=== PATIENT | female | born 1975 | race Caucasian/White ===

== ENCOUNTER 2019-01-22 23:03 | Observation (INO) | payer OTHER ==
[~2019-01-22] VITALS: Ht 162.6 cm; Wt 58.1 kg
[~2019-01-22 23:03] MED LIST: Z.0.SYNTHROID50 MCG PO
--- OUTSIDE RECORDS SUMMARY | 2019-01-22 23:45 | XMS REPORT | Continuity of Care Document ---
Author Author [facility] Address Unknown Phone Unavailable Problems Problem Status Onset Date Classification Date Reported Comments Source Chest pain, unspecified type Active Diagnosis 09/29/2016 [facility] Other specified hypothyroidism Active Diagnosis 09/29/2016 [facility] Medications Medication Details Route Status Patient Instructions Ordering Provider Order Date Source Synthroid 1 tablet orally Active .05 orally daily Audrey [facility] Allergies, Adverse Reactions, Alerts Substance Category Reaction Severity Reaction type Status Date Reported Comments Source Codeine Adverse Reaction Info Not Available Adverse Reaction Active 09/23/2016 [facility] Immunizations Immunization Date Given Site Status Last Updated Comments Source Results Order Name Results Value Reference Range Date Interpretation Comments Source Vital Signs Vital Sign Value Date Comments Source Systolic (mm Hg) 116 09/23/2016 [facility] Weight 110 09/23/2016 [facility] Heart Rate 58 09/23/2016 [facility] Diastolic (mm Hg) 76 09/23/2016 [facility] Encounters Location Location Details Encounter Type Encounter Number Reason For Visit Attending Provider ADM Date DC Date Status Source [facility] [employer] [facility] SENT TODAY [id number] 09/23/2016 09/23/2016 [facility] Audrey [employer] [facility] SENT TODAY [id number] 09/23/2016 09/23/2016 [facility] Audrey [employer] [facility] SENT TODAY [id number] 09/23/2016 09/23/2016 [facility]rey [facility] [id number] 09/23/2016 09/23/2016 [facility] [id number] 09/23/2016 09/23/2016 [facility]rey [facility] [id number] 09/23/2016 09/23/2016 [facility] Audrey [facility] N[facility] [id number] 09/27/2016 09/27/2016 [facility] Procedures Procedure Code Date Perfomer Comments Source
--- OUTSIDE RECORDS SUMMARY | 2019-01-22 23:45 | XMS REPORT ---
Author Author [facility] Address Unknown Phone Unavailable Care Team Providers Care Marketing Traffic Coordinator Name Role Phone Unavailable Unavailable Problems This patient has no known problems. Allergies, Adverse Reactions, Alerts This patient has no known allergies or adverse reactions. Medications This patient has no known medications. Encounters Start Date/Time End Date/Time Encounter Type Admission Type Attending [facility] Facility Care Department Encounter ID 2019-01-17 12:00:00 2019-01-17 12:00:00 Emergency E [id number]
--- OUTSIDE RECORDS SUMMARY | 2019-01-22 23:45 | XMS REPORT ---
Author Author Kacey Ventura Organization [employer] Address Unknown Phone Unavailable Care Team Providers Care Fleet Service Manager Name Role Phone Kacey Ventura CP Unavailable Allergies, Adverse Reactions, Alerts Substance Reaction Event Type Codeine Info Not Available Drug Allergy Encounters Encounter Location Date [employer] [facility] SENT TODAY Audrey ERVIN [facility] Sep 23, 2016 ECHO Audrey ERV[facility] Sep 23, 2016 Problems Problem Type Condition ICD-9 Code Onset Dates Condition Status Assessment Chest pain, unspecified type R07.9 Active Assessment Other specified hypothyroidism E03.8 Active Problem Other specified hypothyroidism E03.8 Active Medications Medication Code System Code Instructions Start Date End Date Status Dosage Synthroid Unknown 0 .05 orally daily Active 1 tablet Social History Social History Element Qualifiers Date Reported Caffeine: yes. Do you drink caffeine? Yes, How much a day? 1 cup or more, What type? Soda Sep 23, 2016 Smoking: . Are you a: Never smoker Sep 23, 2016 Alcohol: no. Type: , Frequency: ,Years: , Determination: Sep 23, 2016 Vital Signs Date/Time: Sep 23, 2016 Blood Pressure Systolic 116 mm Hg Weight 110 lbs Cardiac Monitoring Heart Rate 58 /min Blood Pressure Diastolic 76 mm Hg Summary Purpose [employer] Submission
--- OUTSIDE RECORDS SUMMARY | 2019-01-22 23:45 | XMS REPORT ---
Author Author aKcey Ventura Organization [employer] Address Unknown Phone Unavailable Care Team Providers Care Cost Controller Name Role Phone Kacey Ventura CP Unavailable Encounters Encounter Location Date [employer] [facility] SENT TODAY Audrey ERVIN PA Sep 23, 2016 ECHO Audrey ERVIN [facility] Sep 23, 2016 Problems Problem Type Condition ICD-9 Code Onset Dates Condition Status Assessment Chest pain, unspecified type R07.9 Active Assessment Other specified hypothyroidism E03.8 Active Problem Other specified hypothyroidism E03.8 Active Social History Social History Element Qualifiers Date Reported Caffeine: yes. Do you drink caffeine? Yes, How much a day? 1 cup or more, What type? Soda Sep 23, 2016 Smoking: . Are you a: Never smoker Sep 23, 2016 Alcohol: no. Type: , Frequency: ,Years: , Determination: Sep 23, 2016 Summary Purpose [employer] Submission
--- OUTSIDE RECORDS SUMMARY | 2019-01-22 23:45 | XMS REPORT ---
Author Author Kacey Ventura Organization [employer] Address Unknown Phone Unavailable Care Team Providers Care Pan Devulcanizer Helper Name Role Phone Kacey Ventura CP Unavailable Encounters Encounter Location Date [facility] SENT TODAY Audrey ERVIN PA Sep 23, 2016 ECHO Audrey ERVIN PA Sep 23, 2016 NST Audrey ERVIN PA Sep 27, 2016 Problems Problem Type Condition ICD-9 Code [...]
[2019-01-23] VITALS (9 sets, daily range): BP systolic 89–117; BP diastolic 50–65
[2019-01-23] MEDS ORDERED: SODIUM CHLORIDE 0.9% 1000ML 1,000 ML IV SCH (00:30)
--- NOTE | 2019-01-23 00:32 | NUR ---
PATIENT RECEIVED FROM [facility] PER AMBULANCE SERVICE AT 2350. SHE'S ALERT AND ORIENTED X4, NO RESPIRATORY DISTRESS OBSERVED. SKIN INTEGRITY INTACT, SHE C/O PAIN TO THE ABDOMEN WITH PAIN SCORE #8. NO PAIN MEDICATION ON ORDER, CALL AND SPOKE WITH DR CHAUDHRY'S SUPERVISOR ACCOUNTING CLERKS REGARDING PAIN MANAGEMENT, NEW ORDERS RECEIVED. WILL ADMINISTER PAIN MEDICATION ONCE THE ORDERS HAS BEEN VERIFIED BY THE PHARMACIST. ORIENTED TO SURROUNDINGS, CALL LIGHT WITHIN EASY REACH.
[2019-01-23] MEDS: SODIUM CHLORIDE 0.9% 1000ML 1,000 ML IV SCH (01:10)
[2019-01-23] MEDS: HYDROMORPHONE 2MG/ML 2 MG/ML ML IV PRN ×2 (01:10→17:18)
--- NOTE | 2019-01-23 04:49 | NUR ---
PATIENT ASSISTED TO THE RESTROOM TO VOID, SHE'S NOW BACK IN BED AND SHE DENIES ABDOMINAL PAIN AT THIS TIME. CALL LIGHT WITHIN EASY REACH, SHE'S INSTRUCTED TO CALL FOR ASSISTANCE NEEDED.
[2019-01-23] MEDS: ONDANSETRON HCL INJ 2MG/ML 2ML 2 MG/ML VIAL IV PRN ×3 (05:43→21:44)
--- NOTE | 2019-01-23 05:47 | NUR ---
PATIENT C/O NAUSEA AND ABDOMINAL PAIN, MEDICATED WITH ZOFRAN ORDERED, SHE WAS TOLD THAT IT'S NOT TIME FOR THE PAIN MEDICATION YET.
[2019-01-23 06:30] LABS: BASOPHILS % 0.9 % (0.0-1.0); EOSINOPHILS # (AUTO) 0.1 (0.0-0.4); EOSINOPHILS % 2.5 % (0.0-6.0); HEMATOCRIT 29.8 % (34.2-44.1); HEMOGLOBIN 10.3 g/dL (12.0-16.0); LYMPHOCYTES # (AUTO) 1.8 (1.0-3.2); LYMPHOCYTES % 39.7 % (18.0-39.1); MEAN CORPUSCULAR HEMOGLOBIN 31.6 pg (28-32); MEAN CORPUSCULAR HGB CONC 34.6 g/dL (31-35); MEAN CORPUSCULAR VOLUME 91.4 fL (81-99); MONOCYTES # (AUTO) 0.3 (0.2-0.8); MONOCYTES % 6.9 % (4.4-11.3); NEUTROPHILS # (AUTO) 2.2 (2.1-6.9); NEUTROPHILS % 49.8 % (38.7-80.0); PLATELET COUNT 208 x10e3/uL (140-360); RED BLOOD COUNT 3.26 x10e6/uL (3.6-5.1); RED CELL DISTRIBUTION WIDTH 11.7 % (11.7-14.4)
[2019-01-23 07:10] LABS: ANION GAP 6.8 mmol/L (8-16); BLOOD UREA NITROGEN 17 mg/dL (7-26); BUN/CREATININE RATIO 18 (6-25); CARBON DIOXIDE 23 mmol/L (22-29); CHLORIDE 110 mmol/L (98-107); CREATININE, SERUM 0.96 mg/dL (0.57-1.11); EST GLOMERULAR FILTRATION RATE > 60 ML/MIN (60-); GLUCOSE 84 mg/dL (74-118); POTASSIUM 3.8 mmol/L (3.5-5.1); SODIUM 136 mmol/L (136-145)
--- NOTE | 2019-01-23 10:42 | NUR ---
Patient off the unit for EGD, stable, Dr Valencia had rounds
[2019-01-23] MEDS ORDERED: ACETAMINOPHEN 325 MG TAB PO PRN (11:45)
[2019-01-23] MEDS ORDERED: HYDRALAZINE HCL 20 MG/ML VIAL IV PRN (11:45)
--- NOTE | 2019-01-23 12:05 | NUR ---
patient back from EGD, stable. family at bed side
--- NOTE | 2019-01-23 12:05 | NUR ---
Patei Addendum: 01/23/19 at 1435 by LUCÍA MCADAMS RN wrong entry
[2019-01-23] MEDS ORDERED: MIDAZOLAM HCL 2 MG/2 ML VIAL ONE (13:38)
[2019-01-23] MEDS: OYST-CAL-D 500MG TABLET PO SCH (16:16)
[2019-01-23] MEDS ORDERED: LIDOCAINE HCL 2% LOCAL INJ 5 ML SDV VIAL INJ ONE (17:19)
[2019-01-23] MEDS ORDERED: PROPOFOL IV EMULSION 10 MG/ML 20 ML VIAL ONE (17:19)
--- NOTE | 2019-01-23 18:55 | Consultation ---
DATE OF CONSULTATION: 01/23/2019 HISTORY OF PRESENT ILLNESS: This is a 43-year-old, who has supposedly history of hypothyroidism, presented to the hospital because of problems with abdominal pain mostly in the epigastric area associated with some nausea and vomiting. She denies any bleeding along with this problem. Her workup so far referred as she is somewhat anemic with hemoglobin as low as 10.3. She denies any history of ulcer disease in the past. PAST MEDICAL HISTORY: Significant for history of hypothyroidism. MEDICATIONS: Including levothyroxine. ALLERGIES: NONE. SOCIAL HISTORY: No alcohol use. FAMILY HISTORY: Noncontributory. REVIEW OF SYSTEMS: At this point, she denies any chest pain or shortness of breath. Denies any dysphagia, odynophagia. Denies any dysuria, hematuria, or any kind of syncopal episode. PHYSICAL EXAMINATION: GENERAL: The patient is awake, alert, appears to be stable, not in acute distress at this point. VITAL SIGNS: Afebrile, currently without vital signs. HEAD, EYES, EARS, NOSE, AND THROAT: Normocephalic, atraumatic. Sclerae are anicteric. NECK: Supple. HEART: Regular. ABDOMEN: Soft. There is significant tenderness in the epigastric area. There is no rebound or mass. EXTREMITIES: Demonstrates no clubbing. LABORATORY DATA: She had an abdominal ultrasound that was done yesterday, which was negative and again labs shows hemoglobin of 10.3, hematocrit of 29.8, and BMP is normal. IMPRESSION: 1. Abdominal pain, nausea, and vomiting with ulcer disease. 2. Hypothyroidism. Recommendation is continue current care at this point. Keep n.p.o. We will proceed with EGD for further evaluations and follow labs. Jeromy Valencia MD DHD/MODL /[id number] cc: MD Froylan Nicole MD
--- NOTE | 2019-01-23 19:31 | NUR ---
Received bedside shift report from dayshift RN. Patient is laying on the bed with call light within reach, bed set low and side rails up x2. Patient is not in distress and reported no pain
--- NOTE | 2019-01-23 21:44 | NUR ---
Patient was feeling nauseated vomiting substances into the basin. RN checked on patient after stating the nausea subsided but then again returned. RN administered Zofran IV for nausea. Continue to monitor the patient for nausea/pain
[2019-01-24] VITALS (7 sets, daily range): BP systolic 93–117; BP diastolic 50–55
[2019-01-24] MEDS ORDERED: LEVOTHYROXINE SODIUM 50 MCG TAB PO SCH (06:00)
[2019-01-24 06:02] LABS: BASOPHILS % 0.5 % (0.0-1.0); EOSINOPHILS # (AUTO) 0.1 (0.0-0.4); EOSINOPHILS % 0.8 % (0.0-6.0); HEMATOCRIT 30.8 % (34.2-44.1); LYMPHOCYTES # (AUTO) 1.5 (1.0-3.2); MEAN CORPUSCULAR HEMOGLOBIN 32.2 pg (28-32); MEAN CORPUSCULAR HGB CONC 35.7 g/dL (31-35); MEAN CORPUSCULAR VOLUME 90.1 fL (81-99); MONOCYTES # (AUTO) 0.3 (0.2-0.8); MONOCYTES % 4.2 % (4.4-11.3); NEUTROPHILS # (AUTO) 5.7 (2.1-6.9); NEUTROPHILS % 74.4 % (38.7-80.0); PLATELET COUNT 224 x10e3/uL (140-360); RED BLOOD COUNT 3.42 x10e6/uL (3.6-5.1); RED CELL DISTRIBUTION WIDTH 11.3 % (11.7-14.4)
[2019-01-24 06:33] LABS: ANION GAP 7.6 mmol/L (8-16); BLOOD UREA NITROGEN 11 mg/dL (7-26); BUN/CREATININE RATIO 13 (6-25); CALCIUM 8.2 mg/dL (8.4-10.2); CARBON DIOXIDE 25 mmol/L (22-29); CHLORIDE 106 mmol/L (98-107); CREATININE, SERUM 0.86 mg/dL (0.57-1.11); EST GLOMERULAR FILTRATION RATE > 60 ML/MIN (60-); GLUCOSE 73 mg/dL (74-118); LIPASE 15 U/L (8-78); MAGNESIUM 1.7 MG/DL (1.3-2.1); POTASSIUM 3.6 mmol/L (3.5-5.1); SODIUM 135 mmol/L (136-145)
[2019-01-24 06:34] LABS: B-TYPE NATRIURETIC PEPTIDE2 160.1 pg/mL (0-100)
[2019-01-24 06:56] LABS: FREE T4 (FREE THYROXINE) 0.89 ng/dL (0.9-1.8); THYROID STIMULATING HORMONE 0.258 uIU/mL (0.350-4.940)
[2019-01-24] MEDS: SODIUM CHLORIDE 0.9% 1000ML 1,000 ML IV SCH ×2 (07:07→17:19)
--- NOTE | 2019-01-24 07:08 | NUR ---
pt asleep resp even and unlabored at this time no distress noted at this time, no c/o pain to abdomen area, pt able to make needs known will cont to monitor. call light in reach.
[2019-01-24] MEDS: LEVOTHYROXINE SODIUM 50 MCG TAB PO SCH (07:11)
[2019-01-24] MEDS: PANTOPRAZOLE SOD 40 MG TABEC PO SCH ×2 (07:13→07:30)
[2019-01-24] MEDS: OYST-CAL-D 500MG TABLET PO SCH ×2 (09:00→17:13)
[2019-01-24] MEDS ORDERED: ACETAMINOPHEN/ASPIRIN/CAFFEINE 1 EA TAB PO ONE (11:15)
[2019-01-24] MEDS ORDERED: PANTOPRAZOLE SO40 MG PO (11:18)
--- NOTE | 2019-01-24 11:32 | NUR ---
Denise here to see pt.
[2019-01-24] MEDS ORDERED: ACETAMINOPHEN/ASPIRIN/CAFFEINE 1 EA TAB PO NR (17:30)
[2019-01-24] MEDS ORDERED: PANTOPRAZOLE INJ 40 MG in SODIUM CHLORIDE 0.9% 50ML 50 ML IV SCH (18:15)
[2019-01-24] MEDS: PANTOPRAZOL 40MG/SOD CHL 0.9% 50 ML IV SCH ×2 (18:44→22:50)
--- NOTE | 2019-01-24 19:14 | NUR ---
report given to on coming nurse for continued care.
[2019-01-24] MEDS: SUCRALFATE 1 GM TAB PO SCH (21:17)
[2019-01-24] MEDS: ONDANSETRON HCL INJ 2MG/ML 2ML 2 MG/ML VIAL IV PRN (23:04)
[2019-01-25] VITALS: BP 109/55
--- NOTE | 2019-01-25 02:24 | NUR ---
PATIENT IS ASLEEP RESTING COMFORTABLY BOTH EYES CLOSED. SHOWS NO SIGNS OF DISTRESS OR PAIN. CALL LIGHT WITH EASY REACH WILL CONTINUE TO MONITOR.
[2019-01-25] MEDS: PANTOPRAZOL 40MG/SOD CHL 0.9% 50 ML IV SCH ×2 (03:45→09:51)
[2019-01-25 04:00] VITALS: BP 102/53
[2019-01-25 05:42] LABS: BASOPHILS % 0.6 % (0.0-1.0); EOSINOPHILS # (AUTO) 0.1 (0.0-0.4); EOSINOPHILS % 1.6 % (0.0-6.0); HEMOGLOBIN 10.6 g/dL (12.0-16.0); LYMPHOCYTES # (AUTO) 1.5 (1.0-3.2); LYMPHOCYTES % 31.4 % (18.0-39.1); MEAN CORPUSCULAR HEMOGLOBIN 31.7 pg (28-32); MEAN CORPUSCULAR HGB CONC 35.3 g/dL (31-35); MEAN CORPUSCULAR VOLUME 89.8 fL (81-99); MONOCYTES # (AUTO) 0.3 (0.2-0.8); NEUTROPHILS # (AUTO) 2.9 (2.1-6.9); PLATELET COUNT 221 x10e3/uL (140-360); RED BLOOD COUNT 3.34 x10e6/uL (3.6-5.1); RED CELL DISTRIBUTION WIDTH 11.2 % (11.7-14.4)
[2019-01-25 06:17] LABS: ANION GAP 8.8 mmol/L (8-16); BLOOD UREA NITROGEN 10 mg/dL (7-26); BUN/CREATININE RATIO 12 (6-25); CALCIUM 8.5 mg/dL (8.4-10.2); CARBON DIOXIDE 23 mmol/L (22-29); CHLORIDE 107 mmol/L (98-107); CREATININE, SERUM 0.86 mg/dL (0.57-1.11); EST GLOMERULAR FILTRATION RATE > 60 ML/MIN (60-); GLUCOSE 70 mg/dL (74-118); POTASSIUM 3.8 mmol/L (3.5-5.1); SODIUM 135 mmol/L (136-145)
[2019-01-25] MEDS: LEVOTHYROXINE SODIUM 50 MCG TAB PO SCH (06:40)
[2019-01-25 07:25] VITALS: BP 105/50
--- NOTE | 2019-01-25 07:25 | NUR ---
PATIENT ASSISTED TO THE RESTROOM AND BACK TO BED. IV FLUID AND IV PROTONIC INFUSING ORDERED. DENIED PAIN AT THIS TIME. BED IN LOWER POSITION, CALL LIGHT AT REACH.
[2019-01-25] MEDS: SUCRALFATE 1 GM TAB PO SCH ×3 (07:39→16:36)
[2019-01-25 08:00] VITALS: BP 105/50
[2019-01-25] MEDS: OYST-CAL-D 500MG TABLET PO SCH ×2 (09:16→17:37)
[2019-01-25] MEDS: SODIUM CHLORIDE 0.9% 1000ML 1,000 ML IV SCH (09:51)
[2019-01-25 11:42] VITALS: BP 109/55
--- NOTE | 2019-01-25 12:30 | NUR ---
PATIENT TOLERATED CLEAR LIQUID. MD NOTIFIED, DIET ADVANCED.
[2019-01-25 16:11] VITALS: BP 116/58
--- NOTE | 2019-01-25 16:25 | NUR ---
PATIENT SITTING AT BED SIDE TALKING TO FAMILY MEMBERS VISITING. CALL LIGHT AT REACH.
[2019-01-25] MEDS ORDERED: CARAFATE1 GM/10 ML PO (18:27)
--- NOTE | 2019-01-25 18:45 | NUR ---
PATIENT DISCHARGED HOME. DISCHARGE INSTRUCTIONS, PRESCRIPTIONS, AND FOLLOW UP GIVEN TO PATIENT, SHE VERBALIZED UNDERSTANDING. IV TO LEFT HAND REMOVED WITH TIP INTACT. ALL PERSONAL ITEMS TAKEN WITH PATIENT. REFUSED WHEEL CHAIR, BUT WAS ACCOMPANIED BY HOSPITAL STAFF TO FRONT LOBBY IN STABLE CONDITION.
--- NOTE | 2019-01-30 05:01 | Discharge Summary ---
ADMISSION DIAGNOSES: Abdominal pain, hypothyroidism, and hypocalcemia. DISCHARGE DIAGNOSES: Abdominal pain, hypothyroidism, hypocalcemia, hiatal hernia, acid reflux, gastritis, and hyponatremia. HISTORY: The patient has a history of IBS and hypothyroidism. SURGICAL HISTORY: Right carpal tunnel release, bilateral breast augmentation, partial hysterectomy. FAMILY HISTORY: Noncontributory. SOCIAL HISTORY: The patient admits to occasional alcohol use. HOSPITAL COURSE: A 43-year-old female, says she had abdominal pain for 2 days and went to [facility], but was sent home. When the patient returned 2 days later to the ER, her abdominal pain had returned, so she was admitted. The patient had an EGD that showed hiatal hernia, reflux, and gastritis. The patient was started on Protonix and IV fluids. After the EGD, patient was unable to tolerate p.o. fluids, so her discharge was held until she was able to tolerate food. She was started on a Protonix drip for a day before she was able to tolerate food. Vital signs stable, patient afebrile. The patient was given a prescription for Protonix. She will follow up with primary care in 1-2 weeks. The patient understands discharge instructions and agrees to plan. Dictated by Denise Francisco NP MD SYMONE Basilio/ZAHEER /[id number]
== END 2019-01-25 18:49 | disposition home or self-care (01) ==
LOC: INTOOBSV 23:43 → MED/SURG3 23:43
PROVIDERS: ADMIT Internal Medicine; ATTEND Internal Medicine
DX: K29.00 Acute gastritis without bleeding (principal); E87.1 Hypo-osmolality and hyponatremia; K44.9 Diaphragmatic hernia without obstruction or gangrene; R10.13 Epigastric pain; E03.9 Hypothyroidism, unspecified; K58.9 Irritable bowel syndrome, unspecified; Z88.5 Allergy status to narcotic agent; Z91.011 Allergy to milk products; E83.51 Hypocalcemia
CPT/HCPCS: 36415 ×3; 43239; 80048 ×3; 83036; 83690; 83735; 83880; 84439; 84443; 85025 ×3; 88305; 88312; 96374; 96376; G0378 ×4; J1170; J2001; J2250; J2405 ×2; J2704; J7030 ×3; S0164

== ENCOUNTER → 2019-05-16 | Day surgery (SDC) | payer OTHER ==
[2019-05-15 16:16] LABS: BASOPHILS # (AUTO) 0.1 (0.0-0.1); BASOPHILS % 1.1 % (0.0-1.0); EOSINOPHILS # (AUTO) 0.1 (0.0-0.4); EOSINOPHILS % 1.3 % (0.0-6.0); HEMOGLOBIN 12.3 g/dL (12.0-16.0); LYMPHOCYTES # (AUTO) 1.8 (1.0-3.2); LYMPHOCYTES % 28.9 % (18.0-39.1); MEAN CORPUSCULAR HEMOGLOBIN 31.6 pg (28-32); MEAN CORPUSCULAR HGB CONC 35.1 g/dL (31-35); MONOCYTES # (AUTO) 0.5 (0.2-0.8); MONOCYTES % 8.4 % (4.4-11.3); NEUTROPHILS # (AUTO) 3.7 (2.1-6.9); PLATELET COUNT 291 x10e3/uL (140-360); RED BLOOD COUNT 3.89 x10e6/uL (3.6-5.1); RED CELL DISTRIBUTION WIDTH 11.9 % (11.7-14.4)
[2019-05-15 16:36] LABS: ALBUMIN 4.2 g/dL (3.5-5.0); ALBUMIN/GLOBULIN RATIO 1.4 (0.8-2.0); ANION GAP 13.9 mmol/L (8-16); CALCIUM 9.7 mg/dL (8.4-10.2); CREATININE, SERUM 1.15 mg/dL (0.57-1.11); POTASSIUM 3.9 mmol/L (3.5-5.1)
[~2019-05-16] MED LIST changes: +BIOTIN PO; +BUPIVACAINE 0.25%/EPI 30ML SDV INJ ONE; +CARAFATE1 GM/10 ML PO; +DEXAMETHASONE SOD PHOS INJ 4 MG/ML VIAL ONE; +FENTANYL CITRATE/PF 100MCG/2 ML INJ ONE; +GLYCOPYRROLATE INJ 1MG/ 5 ML SYR ONE; +KETOROLAC TROMETHAMINE 30 MG/ML VIAL ONE; +LIDOCAINE HCL 2% LOCAL INJ 5 ML SDV VIAL INJ ONE; +LINZESS PO; +METOCLOPRAMIDE HCL 10 MG/2ML VIAL ONE; +MIDAZOLAM HCL 2 MG/2 ML VIAL ONE; +NEOSTIGMINE 5 MG/5ML SYR ONE; +ONDANSETRON HCL INJ 2MG/ML 2ML 2 MG/ML VIAL ONE; +PANTOPRAZOLE SO40 MG PO; +PROPOFOL IV EMULSION 10 MG/ML 20 ML VIAL ONE; +ROCURONIUM BROMIDE 10 MG/ML 5ML VIAL ONE; +SEVOFLURANE INHAL SOLN 250 ML PEN BTL ONE
--- OUTSIDE RECORDS SUMMARY | 2019-05-16 07:39 | XMS REPORT | Clinical Summary ---
Author Author [facility] Organization [facility] Address Unknown Phone Unavailable Care Team Providers Care Photonics Engineering Technologist Name Role Phone Parish Harris MD PCP Allergies Comments Active Allergy Reactions Severity Noted Date Codeine Itching 04/18/2019 Medications End Date Status Medication Sig Dispensed Refills Start Date 04/23/2019 traMADol (ULTRAM) 50 mg Take 1 tablet 10 tablet 0 tablet (50 mg total) 9 by mouth every 6 (six) hours as needed for moderate pain for up to 10 doses. 04/27/2019 sucralfate (CARAFATE) 1 Take 1 tablet 30 tablet 0 gram tablet (1 g total) 9 by mouth 4 (four) times a day before meals and nightly for 30 doses. Active Problems Not on file Encounters Care Team Description Date Type Specialty Layo Cifuentes, RETURNED GOODS INSPECTOR-C Armando Perkins MD Epigastric pain (Primary Dx); Non-intractable vomiting with nausea, unspecified vomiting type 04/18/2019 Emergency Emergency Medicine - 2019 Delvin Navarro MD Diaphragmatic hernia without obstruction or gangrene; Epigastric pain; Gastritis without bleeding, unspecified chronicity, unspecified gastritis type 02/22/2019 Hospital Radiology Encounter Delvin Navarro MD Diaphragmatic hernia without obstruction or gangrene (Primary Dx); Epigastric pain; Gastritis without bleeding, unspecified chronicity, unspecified gastritis type 02/18/2019 Transcribe Access Orders after 05/15/2018 Social History Date Tobacco Use Types Packs/Day Years Used Never Assessed Sex Assigned at Date Recorded Not on file Industry Job Start Date Occupation Not on file Not on file Not on file Travel End Travel History Travel Start No recent travel history available. Last Filed Vital Signs Reading Time Taken Comments Vital Sign 102/62 2019 1:26 AM CDT Blood Pressure 60 2019 1:26 AM CDT Pulse 36.7 C (98 F) 04/18/2019 7:14 PM CDT Temperature 18 2019 1:26 AM CDT Respiratory Rate 100% 2019 1:26 AM CDT Oxygen Saturation - - Inhaled Oxygen Concentration 50.8 kg (112 lb) 04/18/2019 7:13 PM CDT Weight 162.6 cm (5' 4") 04/18/2019 7:13 PM CDT Height 19.22 04/18/2019 7:13 PM CDT Body Mass Index Plan of Treatment Health Maintenance Due Date Last Done Comments CERVICAL CANCER SCREENING 1994 INFLUENZA VACCINE 03/28/2019 Procedures Comments Procedure Name Priority Date/Time Associated Diagnosis ECG ED PRELIMINARY Routine 2019 INTERPRETATION 1:27 AM CDT ESTIMATED GFR STAT 04/18/2019 10:55 PM CDT HCG QUALITATIVE, URINE STAT 04/18/2019 SCREEN 10:55 PM CDT URINALYSIS SCREEN AND STAT 04/18/2019 MICROSCOPY, WITH REFLEX 10:55 PM CDT TO CULTURE LIPASE LEVEL STAT 04/18/2019 10:55 PM CDT COMPREHENSIVE METABOLIC STAT 04/18/2019 PANEL 10:55 PM CDT HC COMPLETE BLD COUNT STAT 04/18/2019 W/AUTO DIFF 10:55 PM CDT URINE CULTURE STAT 04/18/2019 10:55 PM CDT US GALLBLADDER STAT 04/18/2019 9:33 PM CDT ECG 12-LEAD STAT 04/18/2019 8:42 PM CDT NM HEPATOBILIARY W PHARM Routine 02/22/2019 Diaphragmatic hernia 11:25 AM CDT without obstruction or gangrene Epigastric pain Gastritis without bleeding, unspecified chronicity, unspecified gastritis type after 05/15/2018 Results * ECG ED Preliminary Interpretation - Not an Order (2019 1:27 AM CDT) Narrative Performed At Layo Cifuentes NP-C 04/20/20193:37 PM ECG ED Preliminary Interpretation - Not an Order Performed by: Layo Cifuentes NP-C Authorized by: Layo Cifuentes NP-C ECG reviewed by ED Physician in the absence of a veneer stapler: yes Previous ECG: Previous ECG:Unavailable Interpretation: Interpretation: non-specific Rate: ECG rate:48 ECG rate assessment: bradycardic Rhythm: Rhythm: sinus bradycardia Ectopy: Ectopy: none QRS: QRS axis:Normal QRS intervals:Normal ST segments: ST segments:Normal T waves: T waves: normal Comments: Low voltage QRS. * Urinalysis screen and microscopy, with reflex to culture (04/18/2019 10:55 PM CDT) Specimen site Clean catch [facility] Color, UA Yellow [facility] Appearance, UA Clear [facility] Specific 1.016 1.001 - 1.035 SUBLIMITY gravity, [facility] pH, UA 5.0 5.0 - 8.5 [facility] Protein, UA Negative Negative [facility] Glucose, UA Negative Negative [facility] Ketones, UA Negative Negative [facility] Bilirubin, UA Negative Negative [facility] Blood, UA Small (A) Negative [facility] Nitrite, UA Negative Negative [facility] Urobilinogen, Negative <2.0 [facility] Leukocyte Negative Negative SUBLIMITY esterase, UA [facility] Epithelial Many Few /HPF SUBLIMITY cells, UA [facility] WBC, UA 0-5 0 - 4 /HPF [facility] RBC, UA 0-5 0 - 5 /HPF [facility] Bacteria, UA Few None seen [facility] Yeast, UA None seen [facility] Yeast with None seen SUBLIMITY pseudohyphae, [facility] Specimen Urine Performing Organization Address City/State/Zipcode [place] [address] [place] [address] PATHOLOGY AND GENOMIC MEDICINE [facility] [id number] [place] [address] * Estimated GFR (04/18/2019 10:55 PM CDT) [facility] Estimated GFR 60 mL/min/1.73 m2 SUBLIMITY Comment: [facility] rpretation G1 >=90 Normal or high G2 60-89Mildly decreased [id number] Mildly to moderately decreased [id number] Moderately to severely decreased G4 15-29Severely decreased G5 <15Kidney failure The eGFR was calculated using the Chronic Kidney Disease Epidemiology Collaboration (CKD-EPI) equation. Interpretation is based on recommendations of the National Kidney Foundation-Kidney Disease Outcomes Quality Initiative (NKF-KDOQI) published in 2014. Specimen Plasma specimen Performing Organization Address [facility] Phone Number [address] [place] [address] PATHOLOGY AND GENOMIC MEDICINE [address] * hCG qualitative, urine screen (04/18/2019 10:55 PM CDT) [facility] hCG Negative Negative SUBLIMITY qualitative, Comment: CHILANGO GOLDBERG urine The manufacturers stated [facility] sensitivity of HcG test for serum is >/=10 mIU/ml and urine is >/=20mIU/ml. Specimen Urine Performing Organization Address [facility] [place] [facility]ori Phone Number [address] [place] [address] PATHOLOGY AND GENOMIC MEDICINE [address] * CBC with platelet and differential (04/18/2019 10:55 PM CDT) [facility] WBC 7.62 4.50 - 11.00 k/uL [facility] RBC 4.12 (L) 4.20 - 5.50 m/uL [facility] HGB 12.9 12.0 - 16.0 g/dL [facility] HCT 38.6 37.0 - 47.0 % [facility] MCV 93.7 82.0 - 100.0 fL [facility] MCH 31.3 27.0 - 34.0 pg [facility] MCHC 33.4 31.0 - 37.0 g/dL [facility] RDW - SD 42.7 37.0 - 55.0 fL [facility] MPV 11.8 8.8 - 13.2 fL [facility] Platelet count 230 150 - 400 k/uL [facility] Neutrophils 61.8 39.0 - 69.0 % [facility] Lymphocytes 28.2 25.0 - 45.0 % [facility] Monocytes 6.7 0.0 - 10.0 % [facility] Eosinophils 2.2 0.0 - 5.0 % [facility] Basophils 0.8 0.0 - 1.0 % [facility] Specimen Blood Performing Organization Address [facility] [place] [facility] Cent[facility]ode Phone Number [facility] [address] [place] [address] PATHOLOGY AND GENOMIC MEDICINE [address] * Urine culture (04/18/2019 10:55 PM CDT) Pathologist [facility] Urine culture SEE COMMENTComment: SUBLIMITY Bacteriuria screen negative. [facility] Specimen Urine Performing Organization Address [facility] Phone Number [facility] [address] [place] [address] PATHOLOGY AND GENOMIC MEDICINE [address] * Lipase level (04/18/2019 10:55 PM CDT) Lipase 42 13 - 60 U/L [facility] Specimen Plasma specimen Performing Organization Address [facility] [place] [facility] Phone Number [facility] [address] [place] [address] PATHOLOGY AND GENOMIC MEDICINE [address] * Comprehensive metabolic panel (04/18/2019 10:55 PM CDT) Sodium 139 135 - 148 mEq/L [facility] Potassium 4.0 3.5 - 5.0 mEq/L [facility] Chloride 102 98 - 112 mEq/L [facility] CO2 25 24 - 31 mEq/L [facility] Anion gap 12@ANIO 7 - 15 mEq/L [facility] BUN 12 6 - 20 mg/dL [facility] Creatinine 1.10 (H) 0.50 - 0.90 mg/dL [facility] Glucose 97 65 - 99 mg/dL [facility] Calcium 9.4 8.3 - 10.2 mg/dL [facility] Protein 7.7 6.3 - 8.3 g/dL SUBLIMITY Comment: [facility] 4.6-7.0 g/dL 1 week 4.4-7.6 g/dL 7 months-1year 5.1-7.3 g/dL 1-2 years5.6-7 .5 g/dL >3 years6.0-8 .0 g/dL 18-150 6.3-8.3 g/dL Albumin 4.9 3.5 - 5.0 g/dL [facility] A/G ratio 1.8 0.7 - 3.8 [facility] Alkaline 46 35 - 104 U/L SUBLIMITY phosphatase [facility] AST 20 10 - 35 U/L [facility] ALT 12 5 - 50 U/L [facility] Total bilirubin 0.3 0.0 - 1.2 mg/dL [facility] Specimen Plasma specimen Performing Organization Address City/State/Zipcode [place] [address] [place] [address] PATHOLOGY AND GENOMIC MEDICINE [facility] [address] * US Gallbladder (04/18/2019 9:33 PM CDT) Specimen Narrative Performed At EXAMINATION:US GALLBLADDER [facility] CLINICAL HISTORY:epigastricRUQ abdominal pain COMPARISON:None. FINDINGS: Gallbladder: The gallbladder is without evidence of calculi. The gallbladder wall is not thickened and there is no pericholecystic fluid. CBD:3 mm , within normal limits. Portal vein: The portal vein demonstrates normal hepatopedal flow. The portal vein measures 0.9 cm. IMPRESSION: Normal gallbladder ultrasound examination. [facility]-[id number] Procedure Note Hm Interface, Radiology Results Incoming - 04/18/2019 9:39 PM CDT EXAMINATION: US GALLBLADDER CLINICAL HISTORY: epigastric RUQ abdominal pain COMPARISON: None. FINDINGS: Gallbladder: The gallbladder is without evidence of calculi. The gallbladder wall is not thickened and there is no pericholecystic fluid. CBD: 3 mm , within normal limits. Portal vein: The portal vein demonstrates normal hepatopedal flow. The portal vein measures 0.9 cm. IMPRESSION: Normal gallbladder ultrasound examination. [facility]-[id number] Performing Organization Address City/[facility]/Zipcode Phone Number [facility] [address] [place] [address] * ECG 12 lead (04/18/2019 8:42 PM CDT) Ventricular 48 [facility] rate Atrial rate 48 [facility] MD interval 124 [facility] QRSD interval 66 [facility] QT interval 430 [facility] QTC interval 384 [facility] P axis 1 72 [facility] QRS axis 1 72 [facility] T wave axis 71 [facility] EKG impression Marked sinus bradycardia-Low [facility] voltage QRS-Abnormal ECG-No previous ECGs available- Specimen Narrative Performed At Performing Organization Address [facility] [place] [facility]ori Phone Number [facility] MUSE [address] [place] [address] * NM Hepatobiliary W Pharm (HIDA Scan w Pharm) (02/22/2019 11:25 AM CDT) Specimen Narrative Performed At PROCEDURE:NM HEPATOBILIARY W PHARM (HIDA SCAN W PHARM) [facility] INDICATION: Abdominal pain. TECHNIQUE: The patient was injected with 5 mCi of Tc-99m Choletec and planar dynamic images of the abdomen were acquired for one hour. The patient was then injected with a standard dose of IV CCK and a gallbladder ejection fraction was calculated. FINDINGS: Tracer is seen within the gallbladder and small bowel by one hour.After CCK infusion, there is normal contraction of the gallbladder.No reflux.Gallbladder ejection fraction is 100%.Normal is greater than 30%. IMPRESSION: 1.Normal study. [facility]-[id number] Procedure Note Interface, Radiology Results Incoming - 02/22/2019 11:31 AM CDT PROCEDURE: NM HEPATOBILIARY W PHARM (HIDA SCAN W PHARM) INDICATION: Abdominal pain. TECHNIQUE: The patient was injected with 5 mCi of Tc-99m Choletec and planar dynamic images of the abdomen were acquired for one hour. The patient was then injected with a standard dose of IV CCK and a gallbladder ejection fraction was calculated. FINDINGS: Tracer is seen within the gallbladder and small bowel by one hour. After CCK infusion, there is normal contraction of the gallbladder. No reflux. Gallbladder ejection fraction is 100%. Normal is greater than 30%. IMPRESSION: 1. Normal study. [facility]-[id number] Performing Organization Address City/State/Zipcode Phone Number [facility] [address] [place] [address] after 05/15/2018 Insurance Type Payer Benefit Subscriber ID Effective Phone Address Plan / Dates Group HMO/PPO [facility] xxxxxxxxx [id number] THCARE resent CHOICE/CHO ICE + Advance Directives For more information, please contact: [phone] Patient Trimmer Tailer Explanation Type Date Recorded Advance Directives, Living Will and Medical Power of Aviation Warfare Systems Operator
--- OUTSIDE RECORDS SUMMARY | 2019-05-16 07:39 | XMS REPORT | Continuity of Care Document ---
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 Name Role Phone [employer] Unavailable Unavailable Problems Problem Status Onset Date Classification [...] Adverse Reaction Active 09/23/2016 [facility] Immunizations No Data Provided for This Section Results No Data Provided for This Section Pathology Reports No Data Provided for This Section Diagnostic Reports No Data Provided for This Section Consultation Notes No Data Provided for This Section Discharge Summaries No Data Provided for This Section History and Physicals No Data Provided for This Section Vital Signs Vital Sign Value Date Comments Source Systolic (mm Hg) 116 09/23/2016 [facility] Weight 110 09/23/2016 [facility] Heart Rate 58 09/23/2016 [facility] Diastolic (mm Hg) 76 09/23/2016 [facility] Encounters Location Location Details Encounter Type Encounter Number Reason For Visit Attending Provider ADM Date DC Date Status Source Audrey [employer] [facility] S[facility] [id number] 09/23/2016 09/23/2016 [facility] Audrey [employer] [facility] S[facility] [id number] 09/23/2016 09/23/2016 [facility] Audrey [employer] [facility] S[facility] [id number] 09/23/2016 09/23/2016 [facility] Audrey [employer] [facility] [id number] 09/23/2016 09/23/2016 [facility] Audrey [employer] [facility] [id number] 09/23/2016 09/23/2016 [facility] [place] [id number] 09/23/2016 09/23/2016 [facility] Audrey [facility] [id number] 09/27/2016 09/27/2016 [facility] Procedures No Data Provided for This Section Assessment and Plan No Data Provided for This Section Plan of Care No Data Provided for This Section Social History Social History Date Source Social History ElementQualifiersDate Reported Caffeine: yes. Do you drink caffeine? Yes, How much a day? 1 cup or more, What type? Soda Sep 23, 2016 Smoking: . Are you a: Never smoker Sep 23, 2016 Alcohol: no. Type: , Frequency: ,Years: , Determination: Sep 23, 2016 09/23/2016 [facility] Family History No Data Provided for This Section Advance Directives No Data Provided for This Section Functional Status No Data Provided for This Section
[2019-05-16 13:20] VITALS: BP 100/48
--- NOTE | 2019-05-16 17:49 | Operative Report ---
DATE OF PROCEDURE: 05/16/2019 SURGEON: Jesus Alberto Green MD PREOPERATIVE DIAGNOSIS: Ventral hernia. POSTOPERATIVE DIAGNOSIS: Ventral hernia. OPERATION PERFORMED: Repair of ventral hernia. ANESTHESIA: General. COMPLICATIONS: None. ESTIMATED BLOOD LOSS: Minimal. DESCRIPTION OF PROCEDURE: With the patient lying in bed in the supine position under good general anesthesia, the abdomen was prepped with Betadine solution and draped in the usual manner. A semilunar subumbilical incision was made. It was carried down through the subcutaneous tissue down to the fascia. The hernia sac was then identified and encircled with normal fascia all the way around. The umbilicus was then detached from the hernia sac. There was some omentum stuck within the hernia sac and this was reduced back to the intraabdominal cavity. A second defect was identified in the epigastric region and this was similarly dissected circumferentially. The hernia sac was resected and the contents were reduced back to the intraabdominal cavity. After this was done, the lower defect was then closed transversely using interrupted sutures of 2-0 Ethibond giving satisfactory closure without tension. The upper defect was closed in a vertical fashion also using 2-0 Ethibond suture. This gave us a satisfactory closure without any tension of either defect. The whole area was thoroughly irrigated. Perfect hemostasis was ascertained. The layers were infiltrated on the way out with solution of 0.25% Marcaine. The umbilicus was then tacked back down to the midline fascia with 3-0 Vicryl. The subcutaneous tissue was approximated with 3-0 Vicryl and the skin was closed with subcuticular 5-0 Vicryl. Benzoin, Steri-Strips, and dressings were applied. The sponge, lap, and needle count was correct. The patient tolerated the procedure well and returned to the recovery room in stable condition. Jesus Alberto Green MD JLR/MODL /[id number]
== END | disposition home or self-care (01) ==
LOC: OR 07:28
PROVIDERS: ATTEND Surgery
DX: K43.9 Ventral hernia without obstruction or gangrene (principal); K58.9 Irritable bowel syndrome, unspecified; Z88.6 Allergy status to analgesic agent; Z01.810 Encounter for preprocedural cardiovascular examination; Z01.812 Encounter for preprocedural laboratory examination
CPT/HCPCS: 36415; 49560; 80053; 85025; 93005; J1100; J1885; J2001; J2250; J2405; J2704; J2765; J3010; J3490